=== PATIENT | female | born 2005 | race Two or more races ===

== ENCOUNTER 2023-08-03 21:14 | Emergency (ER) | payer BC ==
[~2023-08-03] VITALS: Ht 162.6 cm; Wt 72.7 kg
[2023-08-03 21:17] VITALS: BP 153/83; PULSE 100; RESP 17; TEMP 98.5
[2023-08-03] MEDS ORDERED: IBUP-1492 PO (23:36)
[2023-08-03] MEDS ORDERED: AMOX1TAB16 PO (23:36)
[2023-08-03] MEDS: IBUPROFEN 600 MG TABLET PO ONE (23:37)
[2023-08-03] MEDS: AMOX TR/POT CLAV 875 MG/125 MG TABLET PO ONE (23:37)
== END 2023-08-04 00:02 | disposition home or self-care (01) ==
LOC: EMS 21:14
DX: S61.251A Open bite of left index finger without damage to nail, initial encounter (principal); J45.909 Unspecified asthma, uncomplicated; W55.01XA Bitten by cat, initial encounter; Y93.89 Activity, other specified; Y92.89 Other specified places as the place of occurrence of the external cause; Y99.8 Other external cause status
CPT/HCPCS: 99283